=== PATIENT | male | born 1955 | race Caucasian/White ===

== ENCOUNTER 2019-12-13 04:56 | Emergency (ER) | payer MEDICARE, OTHER ==
[~2019-12-13] VITALS: Ht 175.3 cm; Wt 81.6 kg
[~2019-12-13 04:56] MED LIST: ACET-8386 PO; QUET400T PO; TRI48 PO; ZOLP10TA1 PO
[2019-12-13 05:01] VITALS: BP 140/98
--- NOTE | 2019-12-13 05:04 | NUR ---
To ED bed 12
--- NOTE | 2019-12-13 05:06 | NUR ---
64 Y/O MALE BIB SELF WITH C/O OF LOW BACK PAIN 11/24 X 1 MONTH, HE REPORTS HAVING AN MRI THIS UPCOMING DECEMBER 18 BUT WAS UNABLE TO WAIT FOR RESULTS PAIN HAS BEEN "UNBERABLE". REPORTS TAKING NORCO FOR PAIN BUT WITH INEFFECTIVE RESULTS. STATES THAT HE HAS BEEN UNABLE TO REST. BED LOCKED AND IN LOWEST POSITION. ALLX: NKA MEDHX: GALLSTONES, L SHOULDER HYPERTHROPHY, & NECK SURGERY.
--- NOTE | 2019-12-13 05:08 | NUR ---
ER MD AT BEDSIDE EVALUATING PATIENT.
[2019-12-13] MEDS ORDERED: KETOROLAC 30 MG/ML VIAL IM ONE (05:20)
[2019-12-13 05:55] VITALS: BP 134/88
--- NOTE | 2019-12-13 05:55 | NUR ---
Patient discharged with v/s stable. Written and verbal after care instructions given and explained. Patient alert, oriented and verbalized understanding of instructions. Ambulatory with steady gait. All questions addressed prior to discharge. ID band removed. Patient advised to follow up with PMD. Rx of Naprosyn, Zanaflex, Voltaren, & Lidoderm given. Patient educated on indication of medication including possible reaction and side effects. Opportunity to ask questions provided and answered.
== END 2019-12-13 05:55 | disposition home or self-care (01) ==
LOC: MED 04:56
DX: M54.5 Low back pain (principal); Z79.899 Other long term (current) drug therapy
CPT/HCPCS: 96372; 99283; J1885

== ENCOUNTER 2019-12-28 20:25 | Emergency (ER) | payer MEDICARE, OTHER ==
[~2019-12-28] VITALS: Ht 175.3 cm; Wt 80.7 kg
[2019-12-28 20:31] VITALS: BP 163/105
--- NOTE | 2019-12-28 20:40 | NUR ---
PT AMBUALTED TO BED 8 WITH STEADY GAIT.
--- NOTE | 2019-12-28 20:45 | NUR ---
ENID BARBA AT BEDSIDE FOR MEDICAL EVALUATION.
--- NOTE | 2019-12-28 20:46 | NUR ---
64 YO M BIB SELF WITH C/C OF CHRONIC PAIN 10/10 ON THIGHS AND UPPER BACK [id number]. PT STATED IT FEELS DULL AND SHARP AND HAS NOT BEEN ABLE TO SLEEP. PAIN NONRADIATING, LIMITED ROM. PT DENIED TAKING ANYTHING FOR PAIN. BED LOCKED IN LOWEST POSITION, SIDE RAILS X1. 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 HX: R.A RX: FENOFIBRATE, NORCO, GABAPENTIN, PROPANOLOL NKA
[2019-12-28] MEDS ORDERED: MORPHINE SULFATE 4 MG/ML SYR IM ONE (20:50)
--- NOTE | 2019-12-28 21:00 | NUR ---
PT HAS A RIDE HOME. HOOKED ON PULSE OX. SIDE RAILS X1, BED LOCKED IN LOWEST POSITION.
[2019-12-28 21:15] VITALS: BP 134/82
--- NOTE | 2019-12-28 21:15 | NUR ---
Patient discharged with v/s stable. Written and verbal after care instructions given and explained. Patient verbalized understanding. Ambulatory with steady gait. All questions addressed prior to discharge. Advised to follow up with PMD.
== END 2019-12-28 21:15 | disposition home or self-care (01) ==
LOC: MED 20:25
DX: G89.29 Other chronic pain (principal); M54.2 Cervicalgia; M54.6 Pain in thoracic spine; M19.90 Unspecified osteoarthritis, unspecified site; Z79.899 Other long term (current) drug therapy
CPT/HCPCS: 96372; 99283; J2270

== ENCOUNTER 2019-12-31 20:52 | Emergency (ER) | payer MEDICARE, OTHER ==
[~2019-12-31] VITALS: Ht 175.3 cm; Wt 81.6 kg
[2019-12-31 21:02] VITALS: BP 146/87
--- NOTE | 2019-12-31 22:57 | NUR ---
64 Y/O MALE PRESENTED TO ED C/O BL THIGH PAIN X 1 WEEKS. PT DESCRIBES PAIN CRAMPING/ACHING/SHARP PAIN , 7/10, GETS WORSE WHEN PT TRIES TO LAY DOWN. PT STATES NORCO OR MORPHINE DO NOT PROVIDE ANY RELIEF FOR THE PAIN. +PEDAL PULSES, +ROM , PT AMBULATORY W/ STEADY GAIT. PT STATES PAIN DOES NOT RADIATE ANYWHERE. PT DENIES TRUAMA, FALL OR INJURY TO LEGS. A/O X 4, RR EVEN AND UNLABORED. PT IN BED, LOCKED AND IN LOWEST POSITION, HOB ELEVATED, SIDE RAIL X1 . VSS. NO ACUTE DISTRESS NOTED. ERMD MADE AWARE OF PT STATUS. PMH: DENIES NKA
--- NOTE | 2019-12-31 23:11 | NUR ---
Dr. Mixon examining patient.
[2019-12-31] MEDS ORDERED: diazePAM 5 MG TAB PO ONE (23:15)
[2019-12-31] MEDS ORDERED: KETOROLAC 30 MG/ML VIAL IM ONE (23:15)
--- NOTE | 2019-12-31 23:22 | NUR ---
LAB AT BEDSIDE.
[2019-12-31 23:41] LABS: ANION GAP 12.5 (8-16); CARBON DIOXIDE 26.8 mmol/L (21-32); CREATININE 0.8 mg/dL (0.6-1.3); POTASSIUM 4.3 mmol/L (3.5-5.1)
--- NOTE | 2019-12-31 23:45 | NUR ---
PT C/O PAIN IS STARTING TO GET WORSE 09/24 . ERMD MADE AWARE OF PT PAIN C/O AT THIS TIME.
[2020-01-01 00:23] VITALS: BP 170/93
== END 2020-01-01 00:23 | disposition home or self-care (01) ==
LOC: MED 20:52
DX: M79.651 Pain in right thigh (principal); M79.652 Pain in left thigh; Z90.49 Acquired absence of other specified parts of digestive tract; Z79.899 Other long term (current) drug therapy
CPT/HCPCS: 36415; 80048; 96372; 99283; J1885